=== PATIENT | male | born 1960 | race Caucasian/White ===

== ENCOUNTER 2024-12-24 11:40 | Day surgery (SDC) | payer BC, SELFPAY ==
[2024-12-24] VITALS (11 sets, daily range): BP systolic 81–116; BP diastolic 54–74; PULSE 60–77; RESP 8–18; TEMP 36.8–36.9; O2SAT 93–100; BMI 23.3
[2024-12-24] MEDS: SODIUM CHLORIDE 0.9% 500 ML 500 ML 20 ML IV (13:44)
[2024-12-24] MEDS: DiphenhydrAMINE INJ 50 MG/ML VIAL 25 MG IV (13:49)
[2024-12-24] MEDS: fentaNYL CIT INJ 50 mCg/ML AMP 2ML (ASD USE ONLY) IV (13:51)
[2024-12-24] MEDS: MIDAZOLAM INJ 1 MG/ML VIAL 2 ML (ASD USE ONLY) 2 MG IV (13:51)
[2024-12-24] MEDS: ONDANSETRON INJ 2 MG/ML INJ 2 ML 4 MG IV (14:03)
== END 2024-12-24 15:05 | disposition home or self-care (01) ==
PROVIDERS: PCP Nurse Practitioner Family; Referring Provider Specialist; Visit Provider Specialist
PROC: 0DBE8ZX Excision of Large Intestine, Via Natural or Artificial Opening Endoscopic, Diagnostic (ICD-10-PCS; CPT 45380; principal; 2024-12-24 12:15)
DX: K52.9 Noninfective gastroenteritis and colitis, unspecified (principal); K63.89 Other specified diseases of intestine; K62.89 Other specified diseases of anus and rectum; K64.9 Unspecified hemorrhoids; K57.30 Diverticulosis of large intestine without perforation or abscess without bleeding
CPT/HCPCS: 45380; A4649; J1200; J2250; J2405; J3010; J7040